=== PATIENT | male | born 2000 | race Two or more races ===

== ENCOUNTER 2024-11-08 15:11 | Emergency (ER) | payer MEDICAID, SELFPAY ==
[2024-11-08 15:12] VITALS: BMI 23.1
[2024-11-08 15:42] VITALS: BP 136/80; PULSE 91; RESP 16; TEMP 37.4; O2SAT 99
--- NOTE | 2024-11-08 15:44 | EDNOTE_ITS ---
ED Neck Injury Pain RME/HPI General Chief Complaint: Neck Pain/Injury Stated Complaint: Neck pain/lymph node pain worse today Time Seen by Provider: 11/08/24 15:15 Arrival date/time: 11/08/24 15:11 RME / HPI RME / HPI Narrative: 24-year-old male patient came in for evaluation regarding right-sided throat swelling, associated with lymphadenopathy on the right side spine ongoing earlier today. Patient denies any fever denies any cough denies any other complaints. No medications taken prior to ER visit. Related Data Previous Rx's ?Medication ?Instructions ?Recorded dicyclomine 20 mg tablet 20 mg PO TID PRN pain #30 ta bs 01/11/23 ondansetron 4 mg disintegrating 4 mg PO Q6H PRN nausea and 01/11/23 tablet vomiting #14 tabs ibuprofen 600 mg tablet 600 mg PO Q8H PRN pain #30 t abs 11/08/24 Allergies Allergy/AdvReac Type Severity Reaction Status Date / Time Fish Containing Products Allergy Severe Hives Verified 02/03/22 05:57 Review of Systems Review of Systems Narrative Review of Systems: Review of system reviewed and within normal limits except mentioned in HPI ED Exam Narrative Physical exam: VITAL SIGNS: Reviewed. GENERAL APPEARANCE: Alert and interactive, follows commands, no acute distress, HEAD AND FACE: Non-traumatic. ENT: PERRL, pink conjunctivitis, eyelid no trauma, Mucous membrane moist. Right tonsil is slightly enlarged no exudate, lymphadenopathy palpable on the right side of the neck NECK: Supple, nontender, no nuchal rigidity. CHEST: No tenderness, no crepitus, no paradoxical movement, no retractions. LUNGS: Clear, well ventilated, symmetric, no rales, no wheezing, no ronchi, no stridor, good breath sounds bilaterally. HEART: Regular rate, regular rhythm, no murmur, no gallops. ABDOMEN: Soft, positive bowel sounds, nondistended, no guarding, nontender, no rebound, no masses, RECTAL: Deferred. GENITAL: Deferred. NEUROLOGICAL: Gross motor function intact sensory function intact, Appropriate for age. MUSCULOSKELETAL: low back nontender, full range of motion. EXTREMITIES: Nontender, full range of motion. SKIN: Color pink, dry, no rash, no lacerations, no abrasions, no contusions. LYMPHATICS: Deferred. Course Quality Measures none Orders Category Date Time Status Strep A Rapid Stat Lab 11/08/24 15:50 Completed Ibuprofen Tab [Motrin Tab] Med 11/08/24 15:46 Discontinued 600 mg PO X1 ONE Vital Signs Vital signs: Vital Signs Temperature 99.4 F 11/08/24 15:42 Pulse Rate 91 11/08/24 15:42 Respiratory Rate 16 11/08/24 15:42 Blood Pressure 136/80 H 11/08/24 15:42 Pulse Oximetry (%) 99 11/08/24 15:42 Oxygen Delivery Method Room Air 11/08/24 15:42 Neck Pain MDM Narrative MDM Narrative:: 24-year-old male patient came in for evaluation regarding right-sided throat swelling, associated with lymphadenopathy on the right side spine ongoing earlier today. Patient denies any fever denies any cough denies any other complaints. No medications taken prior to ER visit. Patient tested negative for strep. Patient was advised to follow-up. PCP and for referral to general surgeon for further evaluation. Patient agrees with the plan Patient data External records reviewed:: None Clinical information provided by:: patient Social determinants that could affect healthcare access:: none Patient has the following chronic illnesses:: None How is presenting disease/condition affected by chronic disease/condition?: no chronic disease Evaluation data The following diagnostics were reviewed and interpreted by me:: lab results Lab and/or radiology exams considered but not ordered:: None Interpretation Summary: None Medications / Prescriptions Medications or Prescriptions considered but not ordered:: None Medication administrations:: Medication Administration History Discontinued Medications Ibuprofen (Ibuprofen Tab 600 Mg Tablet) 600 mg PO X1 ONE Stop: 11/08/24 15:47 Last Admin: 11/08/24 16:49 Dose: 600 mg Documented By: GERALD Ambrocio Consultations Consultation(s) initiated? (list below): No Diagnosis Neck Differential Diagnosis: other (Lymphadenopathy, sore throat, strep throat) Most likely diagnosis given after review of the tests above:: Lymphadenopathy Admission Indicated Admission indicated?: indicated Admission Request Was there a request for admission?: No Disposition Plan Disposition Plan: Discharge Discharge Attestation Discharge Attestation: The patient was given an opportunity to ask questions and understood the discharge instructions. Discharge instructions specifically effects, indications for sooner follow up or return to the emergency department, and the expected course of current diagnosis. Patient condition: Stable Discharge Plan Plan Patient Disposition: HOME (Self Care) Disposition Comment: Stable Prescriptions/Referrals Prescriptions/Med Rec: New ibuprofen 600 mg tablet 600 mg PO Q8H PRN (Reason: pain) Qty: 30 0RF No Action dicyclomine 20 mg tablet 20 mg PO TID PRN (Reason: pain) Qty: 30 0RF ondansetron 4 mg tablet,disintegrating 4 mg PO Q6H PRN (Reason: nausea and vomiting) Qty: 14 0RF Referrals: Ash Alvarenga MD [Primary Care Provider] - In 1 week Problem List Clinical Impression: Lymphadenopathy Patient/Caregiver Discharge Instructions Discharge Activity: activity as tolerated Education Materials: Lymphadenopathy Additional Instructions: Thank you for the opportunity for serving you today. You are stable for discharged . You are advised to: Follow-up with your PCP in 1 to 2 days and asked for referral to general surgeon Return to ED for worsening of symptoms Increase oral fluids Take medication as prescribed Print Language: Israeli Stand Alone Forms: Sarah Award Info., Patient Portal Info Letter
[2024-11-08 16:10] LABS: Strep A Rapid Negative (Negative)
[2024-11-08] MEDS: IBUPROFEN TAB 600 MG TABLET PO (16:49)
== END 2024-11-08 18:53 | disposition home or self-care (01) ==
PROVIDERS: Nurse Practitioner Family; Emergency Provider Emergency Medicine; PCP Family Medicine
DX: R59.0 Localized enlarged lymph nodes (principal)
CPT/HCPCS: 87651; 99283; A9270